=== PATIENT | male | born 2005 | race Caucasian/White ===

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

== ENCOUNTER 2025-02-08 19:08 | Emergency (ER) | payer BC, SELFPAY ==
--- NOTE | 2025-02-08 19:10 | ED_ITS ---
HPI - Chest Pain General Chief Complaint: Chest Pain Stated Complaint: Heart/Chest Pain Time Seen by Provider: 02/08/25 19:20 Source: patient Mode of arrival: ambulatory Limitations: no limitations History of Present Illness HPI narrative: Radu is a 20 year old male patient presenting to the clinic today with c/o mid sternal chest pain and shortness of breath x 1 weeks. Also reports suicidal ideation to the nurse Cherri Gu. Stated to her that he has though of suicide a lot recently. Initially denied any suicidal plan but then stated to the nurse that has thought about shooting himself today due to his pain. History of depression and anxiety. Is not currently taking any medications Related Data Home Medications ?Medication ?Instructions ?Recorded ?Confirmed ?Last Taken ?Type omeprazole 20 mg capsule,delayed 20 mg PO DAILY 06/20/24 08/25/24 Unknown History release Allergies Allergy/AdvReac Type Severity Reaction Status Date / Time amoxicillin Allergy Rash Verified 02/08/25 19:19 Review of Systems Review of Systems: Pertinent positives per HPI. Patient denies any fever, chills, rash, headache, visual changes, dizziness, cough, runny nose, sore throat, palpitations, nausea, vomiting, diarrhea, constipation, abdominal pain, or any urinary issues. [facility] Past Medical History Medical History Chronic fatigue and malaise Frequent headaches Left wrist pain No pertinent past medical history Otitis media Productive cough Sinusitis Tonsillitis with exudate Wheezing Surgical History Surgical History No pertinent past surgical history Family History Family History Father Crohn disease Mother No problems noted. Sibling No problems noted. Other Colon polyp Hypertension Social History Social History Smoking status: Never smoker Second hand tobacco smoke exposure: Yes Alcohol intake: never Substance use: current Substance use type: marijuana Do You Feel Safe in your Home?: Yes Lack of Transportation: No Lack of Food: Never True Current Housing: I Have Housing Concerned About Future Housing: No Difficulty Paying Gas/Electric Bills: No Difficulty Paying for Meds: No Currently Unemployed: No Education: High School Diploma/GED Difficulty w/ Childcare or Family Care: No Living arrangements: with family Occupation/Education: student Additional occupation/education comments: [employer] [place] Gender identity (if verbalized by the patient): Male Comments At the time of my signature, I reviewed and agree with the nursing past medical, surgical, social, and family history. There is no relevant family history pertinent to the patient complaint. Exam Narrative: General: Well-developed, thin appearing, in no apparent distress Head: Normocephalic, atraumatic. Cardio: Regular rate and rhythm, s1 and s2 normal, no murmur appreciated. Resp: Clear to auscultation bilaterally, no rhonchi, rales, wheezing or rubs. Extremities: No deformity, no edema, no cyanosis, capillary refill less than 2 seconds, peripheral pulses palpable and strong. Integumentary: [place], warm, and dry, intact without lesion, no rashes. Psych: Alert and oriented x 4, Depressed mood and affect, suicidal thoughts with plan, poor judgement and insight Course Course Emergency Course: Portions of this record may have been created with voice recognition software. Level of Care: Express Care Visit Vital Signs Vital signs: Vital signs reviewed Transfer Transfered to: [facility] Transportation: ALS Transfer rationale: Midsternal chest pain/SOB Suicidal ideation with plan Accepting physician: Sandi Transfer comments: [facility] and [place] [employer]. MDM - Chest Pain MDM Narrative Medical decision making narrative: At the time of visit patient is resting comfortably on the exam table. Patient appears to be nontoxic. EKG: EKG shows sinus bradycardia with sinus arrhythmia with heart rate of 56 beats per minute. No ST elevation, depression, or T-wave inversion noted Plan: Patient is having midsternal chest pain with associated shortness of breath. Also reports depression and anxiety and is not taking any medications for this at this time. Told me that he does have suicidal thoughts and has been having suicidal thoughts all day. He spoke with the nurse and told them that he is tired of being in pain and would rather shoot himself. 911 was contacted for EMS and police response. Contacted Sandi at [facility] for continuity of care and she accepts patient for transfer. Differential Diagnosis Differential diagnosis: Likely fracture of rib, pneumothorax, stable angina, unstable angina pectoris, atypical chest pain, st elevation myocardial infarction, costochondritis, chest pain and other (Suicidal ideation with a plan, depression) ECG Data EKG #1: Attestation: I personally reviewed and interpreted this ECG as follows: ECG completion date: 02/08/25 ECG completion time: 19:26 Prior ECG tracings: not available for review Interpretation: EKG shows sinus bradycardia with sinus arrhythmia. Heart rate 56 beats per minute. Intervals 151 milliseconds, QRS durations 98 milliseconds, QT-QTC is 371-262 milliseconds, P-R-T axis is [phone] Discharge Plan Discharge Clinical Impression: Chest pain, Shortness of breath, Depression with suicidal ideation Patient Disposition: Acute Care Hospital Condition: Stable Patient Language: Angolan Prescriptions: No Action duloxetine 30 mg capsule,delayed release(DR/EC) 30 mg PO DAILY Qty: 90 0RF omeprazole 20 mg capsule,delayed release(DR/EC) 20 mg PO DAILY Follow-up/Referrals: PHYSICIAN,MANAGER GALLERY [Primary Care Provider] - Time of Disposition: 19:33 Quality NIHSS Nursing Documentation ED NIHSS nursing documentation: reviewed/agree
--- NOTE | 2025-02-08 19:11 | ECG_ITS ---
Test Date: 2025-02-08 21:13:25 Measurements Intervals [place] Rate: 44 P: 56 FL: 170 QRS: 82 QRSD: 91 T: 59 QT: 428 QTc: 369 Interpretive Statements SINUS BRADYCARDIA POSSIBLE LEFT ATRIAL ENLARGEMENT [-0.1mV P-WAVE IN V1/V2] POSSIBLE LEFT VENTRICULAR HYPERTROPHY [VOLTAGE CRITERIA PLUS LAE OR QRS WIDENING] Compared to ECG 02/08/2025 19:26:45 Sinus arrhythmia no longer present Electronically Signed On 02-09-2025 18:27:27 CDT by Cash Gale M.D.
[2025-02-08 19:19] VITALS: BP 123/80; PULSE 64; RESP 18; TEMP 36.5; O2SAT 100
--- NOTE | 2025-02-08 19:33 | PC.NURSE ---
OFFICER FROM [place] [employer] HERE TALKING WITH PATIENT. OFFICER REPORTS HE IS FROM THE [place] TEAM (CRISIS INTERVENTION TEAM). [address] NP.
--- NOTE | 2025-02-08 19:36 | PC.NURSE ---
2ND OFFICER FROM [place] [employer] HERE IN ROOM WITH PATIENT.
--- NOTE | 2025-02-08 20:08 | PC.NURSE ---
1ST GLIDDEN OFFICER THAT RESPONDED WAS BADGE NUMBER [id number] AND SECOND GLIDDEN OFFICER BADGE NUMBER WAS [id number].
== END 2025-02-08 19:48 | disposition short-term general hospital (02) ==
PROVIDERS: Emergency Provider Nurse Practitioner Family
DX: R07.9 Chest pain, unspecified (principal); R06.02 Shortness of breath; F32.A Depression, unspecified; R45.851 Suicidal ideations; F12.90 Cannabis use, unspecified, uncomplicated
CPT/HCPCS: 93005; 99215; G0463

== ENCOUNTER 2025-02-08 20:09 | Emergency (ER) | payer BC, SELFPAY ==
[2025-02-08 20:39] VITALS: BP 140/87; PULSE 62; RESP 15; TEMP 36.6; O2SAT 100
[2025-02-08 20:55] LABS: Basophils Absolute Auto 0.1 K/mm3 (0.0-0.1); Basophils Percent Auto 0.7 % (0.2-1.2); Eosinophils Absolute Auto 0.3 K/mm3 (0-0.3); Hemoglobin 16.1 g/dL (14.0-18.0); Immature Granulocyte Absolute 0.01 K/mm3 (0.00-0.031); Immature Granulocyte Percent A 0.1 % (0-0.5); Lymphocytes Absolute Auto 2.81 K/mm3 (0.9-3.2); Lymphocytes Percent Auto 37.8 % (18.3-44.2); Mean Corpuscular HGB Conc 35.8 g/dl (32-36); Mean Corpuscular Hemoglobin 31.3 pg (26-34); Mean Corpuscular Volume 87.5 fl (80-100); Mean Platelet Volume 10.4 fl (7.4-10.4); Monocytes Absolute Auto 0.4 K/mm3 (0.1-0.6); Monocytes Percent Auto 5.9 % (2.6-8.5); Neutrophils Absolute Auto 3.8 K/mm3 (1.3-6.7); Neutrophils Percent Auto 51.5 % (45.5-73.1); Platelet Count Result 237 k/mm3 (150-375); Red Blood Count 5.14 M/mm3 (4.6-6.20); White Blood Count 7.4 K/mm3 (4.5-10.0)
--- NOTE | 2025-02-08 20:55 | ECG_ITS ---
Test Date: 2025-02-08 19:26:45 Measurements Intervals [place] Rate: 56 P: 9 CA: 151 QRS: 84 QRSD: 98 T: 39 QT: 371 QTc: 358 Interpretive Statements SINUS BRADYCARDIA WITH SINUS ARRHYTHMIA POSSIBLE LEFT ATRIAL ENLARGEMENT [-0.1mV P WAVE IN V1/V2] POSSIBLE RIGHT VENTRICULAR CONDUCTION DELAY [RSR (QR) IN V1/V2] No previous ECG available for comparison Electronically Signed On 02-09-2025 18:25:50 CDT by Cash Gale M.D.
[2025-02-08 20:58] LABS: Add Urine Microscopic? YES; Appearance Urine Clear (Clear); Bilirubin Urine Negative (Negative); Blood Urine Negative (Negative); Color Urine Dark Yellow (Yellow); Glucose Urine UA Negative (Negative); Ketones Urine 2+ mg/dL (Negative); Leukocyte Esterase Ur Negative LEU/UL (Negative); Nitrate Urine Negative (Negative); Protein Urine Trace mg/dL (Negative); Specific Grav Ur 1.031 (1.001-1.035); Urobilinogen Urine 0.2 mg/dL (<2.0); pH Urine 5.5 (5.0-9.0)
[2025-02-08 21:05] LABS: Alanine Aminotransferase 21 U/L (6-50); Albumin Level 5.7 g/dL (3.5-5.1); Alkaline Phosphatase 90 U/L (38-126); Anion Gap 21 mmol/L (4-12); Aspartate Amino Transferase 25 U/L (17-59); Bilirubin,Total 1.5 mg/dL (0.2-1.3); Blood Urea Nitrogen 19 mg/dL (9-20); Calcium 10.6 mg/dL (8.4-10.2); Carbon Dioxide 23 mmol/L (22-30); Chloride 100 mmol/L (98-107); Estimated CRCL calculation 84 ml/min; Estimated Glomerular Filt Rate > 60; Glucose 98 mg/dL (65-110); Potassium 3.7 mmol/L (3.4-5.0); Sodium 144 mmol/L (137-145)
[2025-02-08 21:09] LABS: Ethanol < 10 mg/dL (<10)
--- NOTE | 2025-02-08 21:09 | ED.PSYCH ---
HPI - Psych General Chief Complaint: Psychiatric Symptoms Stated Complaint: SI History of Present Illness HPI Narrative: Patient is a 20-year-old male who presents ER with complaints of chest pain, shortness of breath, and suicidal ideation. He reports he has been chronically suicidal since around his 18th birthday. Patient reports he has high standards for himself intense to not live up to them. He endorses continually ?messing up and ruminates about negative thoughts in his head. Patient endorses chest pain with inspiration. He also endorses excessive marijuana use and has been using this drug to self medicate. Patient reports he cannot sleep without marijuana use. Denies any wheezing, recent fevers, body aches, or urinary symptoms. Related Data Home Medications ?Medication ?Instructions ?Recorded ?Confirmed ?Last Taken ?Type omeprazole 20 mg capsule,delayed 20 mg PO DAILY 06/20/24 08/25/24 Unknown History release Allergies Allergy/AdvReac Type Severity Reaction Status Date / Time amoxicillin Allergy Rash Verified 02/08/25 20:54 Review of Systems Review of Systems: All systems reviewed & are unremarkable except as noted in HPI and below PMFSH Past Medical History Medical History Otitis media Sinusitis Wheezing Frequent headaches No pertinent past medical history Productive cough Chronic fatigue and malaise Tonsillitis with exudate Left wrist pain Surgical History Surgical History No pertinent past surgical history Family History Family History Father Crohn disease Mother No problems noted. Sibling No problems noted. Other Colon polyp Hypertension Social History Social History Smoking status: Never smoker Second hand tobacco smoke exposure: Yes Alcohol intake: never Substance use: current Substance use type: marijuana Do You Feel Safe in your Home?: Yes Lack of Transportation: No Lack of Food: Never True Current Housing: I Have Housing Concerned About Future Housing: No Difficulty Paying Gas/Electric Bills: No Difficulty Paying for Meds: No Currently Unemployed: No Education: High School Diploma/GED Difficulty w/ Childcare or Family Care: No Living arrangements: with family Occupation/Education: student Additional occupation/education comments: [employer] Gender identity (if verbalized by the patient): Male Exam Narrative: GENERAL: Well appearing, well-nourished, non-toxic, in no acute distress. HEAD: Normocephalic, atraumatic. NECK: Supple. No adenopathy, no masses. RESPIRATORY: Airway patent, respirations nonlabored. Clear to auscultation bilaterally, no rales, rhonchi, wheezing. CARDIOVASCULAR: Regular rate and rhythm without murmurs, rubs, or gallops. Peripheral pulses 2+ and equal bilaterally. ABDOMINAL: Soft, nontender, nondistended, no hepatosplenomegaly. Normoactive BS. MUSCULOSKELETAL: Moves all extremities. Strength/ROM intact without gross deformities. SKIN: Warm, dry, normal color. No rashes. NEURO: A&O X3. Speech clear. Cranial nerves II-XII intact. No ataxic movements. PSYCHIATRIC: Flat affect. Normal interaction. Course Vital Signs Vital signs: Vital Signs Temperature 36.6 C 02/08/25 20:39 Pulse Rate 62 02/08/25 20:39 Respiratory Rate 15 02/08/25 20:39 Blood Pressure 140/87 02/08/25 20:39 Pulse Oximetry 100 02/08/25 20:39 Oxygen Delivery Room Air 02/08/25 20:39 Temperature 36.6 C 02/08/25 20:39 Pulse Rate 62 02/08/25 20:39 Respiratory Rate 15 02/08/25 20:39 Blood Pressure 140/87 02/08/25 20:39 Pulse Oximetry 100 02/08/25 20:39 Oxygen Delivery Room Air 02/08/25 20:39 MDM - Psych MDM Narrative Medical decision making narrative: Patient is a 20-year-old male who presents ER with complaints of chest pain, shortness of breath, and suicidal ideation. He reports he has been chronically suicidal since around his 18th birthday. Patient reports he has high standards for himself intense to not live up to them. He endorses continually ?messing up and ruminates about negative thoughts in his head. Patient endorses chest pain with inspiration. He also endorses excessive marijuana use and has been using this drug to self medicate. Patient reports he cannot sleep without marijuana use. Denies any wheezing, recent fevers, body aches, or urinary symptoms. Labs Ordered: CBC, CMP, TSH, salicylate level, Tylenol level, UA, UDS Imaging Ordered: None necessary Medications Ordered: None necessary Results: Patient's UDS was positive for marijuana. His other labs were unremarkable. Risks: HEART Pathway for Early Discharge in Acute Chest Pain from [email or web address] on 02/09/2025 All calculations should be rechecked by clinician prior to use RESULT SUMMARY: 1 points HEART Pathway Score Low risk 0.9-1.7% 30-day MACE Repeat troponin at 3 hours and if negative, discharge home with outpatient follow-up. INPUTS: History ?> 0 = Slightly suspicious EKG ?> 0 = Normal Age ?> 0 = <45 Risk factors ?> 1 = 1-2 risk factors Initial troponin ?> 0 = <=Normal limit Diagnosis: Depression, anxiety Consults: 2300- Pt is medically cleared for psychiatric evaluation. 0100- Psychiatry mental health intake is here to assess pt. Patient Education/Shared MDM: Intake came in assessed patient. It was deemed he is cleared to be discharged home and receive outpatient treatment. Patient will be discharged home with the prescription for hydroxyzine. Strict return precautions advised. All questions answered. Vital signs stable time of discharge. Differential Diagnosis Differential diagnosis: Likely acute psychosis, chronic schizophrenia, suicidal ideation, bipolar disorder, depression and acute anxiety Lab Data Attestation: I reviewed the patient's lab results. 02/08/25 20:46 02/08/25 20:48 Labs: Lab Results 02/08/25 02/08/25 02/08/25 Range/Units 20:45 20:46 20:47 WBC 7.4 (4.5-10.0) K/mm3 RBC 5.14 (4.6-6.20) M/mm3 Hgb 16.1 (14.0-18.0) g/dL Hct 45.0 (42.0-52.0) % MCV 87.5 (80-100) fl MCH 31.3 (26-34) pg MCHC 35.8 (32-36) g/dl RDW 12.0 (11.5-14.5) % Plt Count 237 (150-375) k/mm3 MPV 10.4 (7.4-10.4) fl Immature Gran % (Auto) 0.1 (0-0.5) % Neut % (Auto) 51.5 (45.5-73.1) % Lymph % (Auto) 37.8 (18.3-44.2) % Antelope % (Auto) 5.9 (2.6-8.5) % Eos % (Auto) 4.0 (0-4.4) % Baso % (Auto) 0.7 (0.2-1.2) % Lymph # (Auto) 2.81 (0.9-3.2) K/mm3 Antelope # (Auto) 0.4 (0.1-0.6) K/mm3 Eos # (Auto) 0.3 (0-0.3) K/mm3 Baso # (Auto) 0.1 (0.0-0.1) K/mm3 Abs Immat Gran (auto) 0.01 (0.00-0.031) K/mm3 Absolute Neuts (auto) 3.8 (1.3-6.7) K/mm3 Absolute Nucleated RBC 0.000 (0.0-0.012) K/mm3 Nucleated RBC % 0.0 (0.0-0.2) % Sodium (137-145) mmol/L Potassium (3.4-5.0) mmol/L Chloride (98-107) mmol/L Carbon Dioxide (22-30) mmol/L Anion Gap (4-12) mmol/L BUN (9-20) mg/dL Creatinine (0.7-1.3) mg/dL Estim Creat Clear Calc ml/min Estimated GFR (59 - ) Glucose (65-110) mg/dL Calcium (8.4-10.2) mg/dL Total Bilirubin (0.2-1.3) mg/dL AST (17-59) U/L ALT (6-50) U/L Alkaline Phosphatase (38-126) U/L Troponin I (0.000-0.034) ng/mL Total Protein (6.3-8.2) g/dL Albumin (3.5-5.1) g/dL Lipase (23-300) U/L TSH (Reflex) (0.465-4.68) uIU/mL Urine Color (Yellow) Urine Appearance (Clear) Urine pH (5.0-9.0) Ur Specific [place] (1.001-1.035) Urine Protein (Negative) mg/dL Urine Glucose (UA) (Negative) mg/dL Urine Ketones (Negative) mg/dL Ur Blood (Man) (Negative) Urine Nitrate (Negative) Urine Bilirubin (Negative) Urine Urobilinogen (<2.0) mg/dL Leukocyte Esterase Rfl (Negative) MADDIE/UL Urine RBC (0-2) /hpf Urine WBC (0-3) /hpf Ur Squamous Epith Cells (Few) /hpf Urine Bacteria (None) /hpf Urine Mucus /lpf Urine Opiates Screen (Negative) Urine Methadone Screen (Negative) Ur Barbiturates Screen (Negative) Ur Phencyclidine Scrn (Negative) Ur Amphetamine Screen (Negative) U Benzodiazepines Scrn (Negative) Urine Cocaine Screen (Negative) U Cannabinoids Screen (Negative) Ethyl Alcohol < 10 (<10) mg/dL SARS-CoV-2 RNA (RT-PCR) Negative (Negative) 02/08/25 Range/Units 20:48 WBC (4.5-10.0) K/mm3 RBC (4.6-6.20) M/mm3 Hgb (14.0-18.0) g/dL Hct (42.0-52.0) % MCV (80-100) fl MCH (26-34) pg MCHC (32-36) g/dl RDW (11.5-14.5) % Plt Count (150-375) k/mm3 MPV (7.4-10.4) fl Immature Gran % (Auto) (0-0.5) % Neut % (Auto) (45.5-73.1) % Lymph % (Auto) (18.3-44.2) % Antelope % (Auto) (2.6-8.5) % Eos % (Auto) (0-4.4) % Baso % (Auto) (0.2-1.2) % Lymph # (Auto) (0.9-3.2) K/mm3 [place]elope # (Auto) (0.1-0.6) K/mm3 Eos # (Auto) (0-0.3) K/mm3 Baso # (Auto) (0.0-0.1) K/mm3 Abs Immat Gran (auto) (0.00-0.031) K/mm3 Absolute Neuts (auto) (1.3-6.7) K/mm3 Absolute Nucleated RBC (0.0-0.012) K/mm3 Nucleated RBC % (0.0-0.2) % Sodium 144 (137-145) mmol/L Potassium 3.7 (3.4-5.0) mmol/L Chloride 100 (98-107) mmol/L Carbon Dioxide 23 (22-30) mmol/L Anion Gap 21 H (4-12) mmol/L BUN 19 (9-20) mg/dL Creatinine 1.09 (0.7-1.3) mg/dL Estim Creat Clear Calc 84 ml/min Estimated GFR > 60 (59 - ) Glucose 98 (65-110) mg/dL Calcium 10.6 H (8.4-10.2) mg/dL Total Bilirubin 1.5 H (0.2-1.3) mg/dL AST 25 (17-59) U/L ALT 21 (6-50) U/L Alkaline Phosphatase 90 (38-126) U/L Troponin I < 0.012 (0.000-0.034) ng/mL Total Protein 9.0 H (6.3-8.2) g/dL Albumin 5.7 H (3.5-5.1) g/dL Lipase 85 (23-300) U/L TSH (Reflex) 2.210 (0.465-4.68) uIU/mL Urine Color Dark yellow (Yellow) Urine Appearance Clear (Clear) Urine pH 5.5 (5.0-9.0) Ur Specific [place] 1.031 (1.001-1.035) Urine Protein Trace (Negative) mg/dL Urine Glucose (UA) Negative (Negative) mg/dL Urine Ketones 2+ H (Negative) mg/dL Ur Blood (Man) Negative (Negative) Urine Nitrate Negative (Negative) Urine Bilirubin Negative (Negative) Urine Urobilinogen 0.2 (<2.0) mg/dL Leukocyte Esterase Rfl Negative (Negative) MADDIE/UL Urine RBC 0-2 (0-2) /hpf Urine WBC 0-3 (0-3) /hpf Ur Squamous Epith Cells Rare (Few) /hpf Urine Bacteria Trace (None) /hpf Urine Mucus Few H /lpf Urine Opiates Screen Negative (Negative) Urine Methadone Screen Negative (Negative) Ur Barbiturates Screen Negative (Negative) Ur Phencyclidine Scrn Negative (Negative) Ur Amphetamine Screen Negative (Negative) U Benzodiazepines Scrn Negative (Negative) Urine Cocaine Screen Negative (Negative) U Cannabinoids Screen Positive A (Negative) Ethyl Alcohol (<10) mg/dL SARS-CoV-2 RNA (RT-PCR) (Negative) Discharge Plan Discharge Clinical Impression: Depression with anxiety, Anxiety, Atypical chest pain Patient Disposition: Home, Self-Care Condition: Stable Instructions: Antibiotic Form, Depression (ED), Anxiety (ED) Additional Instructions: Please return to the ER with any worsening symptoms. Follow-up with primary care provider as soon as possible. Take all medications as prescribed, including regularly scheduled medications. Patient Language: Kinyarwanda Prescriptions: No Action duloxetine 30 mg capsule,delayed release(DR/EC) 30 mg PO DAILY Qty: 90 0RF omeprazole 20 mg capsule,delayed release(DR/EC) 20 mg PO DAILY Follow-up/Referrals: PHYSICIAN,ACID MIXER [Primary Care Provider] - Time of Disposition: 02:53
[2025-02-08 21:12] LABS: Amphetamine Screen Urine Negative (Negative); Barbiturate Screen Urine Negative (Negative); Benzodiazepines Screen Urine Negative (Negative); Cannabinoid Screen Urine Positive (Negative); Cocaine Screen Urine Negative (Negative); Methadone Screen Urine Negative (Negative); Opiate Screen Urine Negative (Negative); Phencyclidine Screen Urine Negative (Negative)
[2025-02-08 21:21] LABS: RBC Urine 0-2 /hpf (0-2)
[2025-02-08 21:22] LABS: Bacteria Urine Trace /hpf; Mucus Urine Few /lpf; Squamous Epithelial Cell Urine Rare /hpf (Few); WBC Urine 0-3 /hpf (0-3)
[2025-02-08 21:24] LABS: Lipase 85 U/L (23-300)
[2025-02-08 21:31] LABS: SARS-CoV-2 RNA PCR Negative (Negative)
[2025-02-08 21:37] LABS: Troponin I < 0.012 ng/mL (0.000-0.034)
== END 2025-02-09 03:06 | disposition home or self-care (01) ==
PROVIDERS: Emergency Provider Registered Nurse
DX: F41.8 Other specified anxiety disorders (principal); R07.89 Other chest pain; Z20.822 Contact with and (suspected) exposure to COVID-19; Z77.22 Contact with and (suspected) exposure to environmental tobacco smoke (acute) (chronic)
CPT/HCPCS: 36415; 80053; 80307; 81001; 82077; 83690; 84443; 84484; 85025; 87635; 93005; 99284

== ENCOUNTER 2025-02-15 11:22 | Outpatient (CLI) | payer BC, SELFPAY ==
--- NOTE | ~2025-02-15 | XR_ITS ---
EXAMINATION: XR chest 2V 02/15/2025 11:34 INDICATION: Chronic cough PROCEDURE: 2 view chest COMPARISON: 01/28/2024 FINDINGS: The lungs are clear. The cardiomediastinal silhouette is within normal limits. There are no pleural effusions. There is no pneumothorax suspected. IMPRESSION: 1: NO ACUTE CARDIOPULMONARY DISEASE. Reviewed, dictated and finalized at location A.
== END 2025-02-15 11:23 | disposition home or self-care (01) ==
PROVIDERS: PCP Family Medicine; Visit Provider Family Medicine
DX: R05.3 Chronic cough (principal)
CPT/HCPCS: 71046